=== PATIENT | female | born 1985 | race Asian ===

== ENCOUNTER 2017-07-25 11:00 | Observation (INO) | payer MEDICAID ==
[~2017-07-25] VITALS: Ht 160 cm; Wt 62.6 kg
== END 2017-07-25 17:25 | disposition home or self-care (01) ==
LOC: SPU 11:00
PROVIDERS: ADMIT Obstetrics & Gynecology; ATTEND Obstetrics & Gynecology
DX: O48.1 Prolonged pregnancy (principal); Z3A.40 40 weeks gestation of pregnancy
CPT/HCPCS: 59025; 76819; 81002; G0378